=== PATIENT | male | born 1995 | race American Indian/Alaskan Native ===

== ENCOUNTER 2016-04-29 18:10 | Emergency (ER) | payer MEDICAID ==
[2016-04-29 18:11] VITALS: BMI 24.3
[2016-04-29 18:18] VITALS: BP 126/79; PULSE 62; RESP 16; TEMP 97.6; O2SAT 99
[2016-04-29] MEDS ORDERED: cefTRIAXone (Rocephin) 250 mg Inj IM ONE (18:39)
--- NOTE | 2016-04-29 18:43 | ED PDOC ---
HPI: Male Pain Time Seen by Provider: 04/29/16 18:17 Chief Complaint (Nursing): Male Genitourinary Chief Complaint (Provider): lesions on penis History Per: Patient History/Exam Limitations: no limitations Additional Complaint(s): 21yo M in ED for eval of lesions to penis x 1 weeks. states he was sexually active without protection x 1 week ago. doens' know partners status. pt admits to pain around lesion sit to penis without penile d/c, swelling to glans, swelling or pain to scrotum. no lesions around anus, no anal pain, no abd pain, no hematuira ,no dysuria, no fever no chills. Past Medical History Reviewed: Historical Data, Nursing Documentation, Vital Signs Vital Signs: Last Vital Signs Temp 97.6 F 04/29/16 18:13 Pulse 62 04/29/16 18:13 Resp 16 04/29/16 18:13 BP 126/79 04/29/16 18:13 Pulse Ox 99 04/29/16 18:13 - Medical History PMH: Denies: Depression - Family History Family History: States: No Known Family Hx - Home Medications Home Medications: Ambulatory Orders Medication Instructions Recorded valACYclovir [Valtrex] 1 gm PO BID #20 tab 04/29/16 - Allergies Allergies/Adverse Reactions: Allergies Allergy/AdvReac Type Severity Reaction Status Date / Time No Known Allergies Allergy Verified 04/29/16 18:13 Review of Systems ROS Statement: Except As Marked, All Systems Reviewed And Found Negative Genitourinary Male: Positive for: Rash, Penile Pain. Negative for: Hematuria, Penile Discharge, Scrotal Pain Physical Exam - Reviewed Nursing Documentation Reviewed: Yes Vital Signs Reviewed: Yes - Physical Exam Appears: Positive for: Well, Non-toxic, No Acute Distress Head Exam: Positive for: ATRAUMATIC, NORMAL INSPECTION, NORMOCEPHALIC Skin: Positive for: Normal Color, Warm, DRY Cardiovascular/Chest: Positive for: Regular Rate, Rhythm Respiratory: Positive for: CNT, Normal Breath Sounds Gastrointestinal/Abdominal: Positive for: Normal Exam, Bowel Sounds, Soft. Negative for: Tenderness Male Genital Exam: Positive for: no hernia, lesions (ulcerative lesions noted to glans of penis and shaft no active bleeding tenderness to lesions. ). Negative for: normal genitalia, bleeding, epididymal tenderness, scrotum tenderness (R), scrotum tenderness (L), testicular tenderness (R), testicular tenderness (L), urethral discharge Back: Positive for: Normal Inspection. 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 Pt will be tx prophylactically: Ceftrixone-250mgIM, azithromycin 1gm PO pt advised to abstain from sexual activity until results. educated on STDs. Disposition - Clinical Impression Clinical Impression: Lesion of penis - Patient ED Disposition Is Patient to be Admitted: No Counseled Patient/Family Regarding: Studies Performed, Diagnosis, Need For Followup, Rx Given - Disposition Disposition: Routine/Home Disposition Time: 18:50 Condition: STABLE Additional Instructions: you will receive a call for only positive STD results in about 3-5days. Prescriptions: valACYclovir [Valtrex] 1 gm PO BID #20 tab Instructions: Genital Herpes Simplex (ED), Sexually Transmitted Diseases (ED), Condom Use (ED), Safe Sex (ED)
[2016-04-29] MEDS ORDERED: Sterile Water 10 ML IV ONE (18:51)
[2016-04-29] MEDS ORDERED: cefTRIAXone (Rocephin) 250 mg Inj ONE (18:51)
== END 2016-04-29 19:11 | disposition home or self-care (01) ==
LOC: H.ER 18:10
DX: A60.00 Herpesviral infection of urogenital system, unspecified (principal); A64 Unspecified sexually transmitted disease

== ENCOUNTER 2016-07-14 19:13 | Emergency (ER) | payer MEDICAID ==
[2016-07-14 19:13] VITALS: BMI 24.3
[2016-07-14 19:21] VITALS: BP 152/85; PULSE 66; RESP 16; TEMP 97.8; O2SAT 99
--- NOTE | 2016-07-14 19:42 | ED PDOC ---
HPI: General Adult Time Seen by Provider: 07/14/16 19:26 Chief Complaint (Nursing): ENT Problem Chief Complaint (Provider): Test results Additional Complaint(s): 21 year old male with no PMH presents to ED requesting results of STD testing that was completed on 04/29/16. Patient denies any STD symptoms. He also states he has nasal congestion and thinks it may be related to seasonal allergies. He denies any chest pain, SOB or JIMENEZ. He denies any sore throat despite triage note stating otherwise. Past Medical History Reviewed: Historical Data, Nursing Documentation, Vital Signs Vital Signs: Last Vital Signs Temp 97.8 F 07/14/16 19:20 Pulse 66 07/14/16 19:20 Resp 16 07/14/16 19:20 BP 152/85 H 07/14/16 19:20 Pulse Ox 99 07/14/16 19:43 - Medical History PMH: No Chronic Diseases - Surgical History Surgical History: No Surg Hx - Family History Family History: States: No Known Family Hx - Living Arrangements Living Arrangements: With Family - Social History Current smoker - smoking cessation education provided: No Alcohol: None Drugs: Denies - Home Medications Home Medications: Ambulatory Orders Medication Instructions Recorded valACYclovir [Valtrex] 1 gm PO BID #20 tab 04/29/16 - Allergies Allergies/Adverse Reactions: Allergies Allergy/AdvReac Type Severity Reaction Status Date / Time No Known Allergies Allergy Verified 04/29/16 18:13 Review of Systems ROS Statement: Except As Marked, All Systems Reviewed And Found Negative Constitutional: Negative for: Fever ENT: Positive for: Nose Congestion Genitourinary Male: Negative for: Dysuria, Frequency, Incontinence, Hematuria, Penile Discharge, Rash, Penile Pain Physical Exam - Reviewed Nursing Documentation Reviewed: Yes Vital Signs Reviewed: Yes - Physical Exam Appears: Positive for: Well, Non-toxic, No Acute Distress Skin: Negative for: Rash Eye Exam: Positive for: Normal appearance ENT: Positive for: Nasal Congestion. Negative for: Pharyngeal Erythema, Tonsillar Swelling Cardiovascular/Chest: Positive for: Regular Rate, Rhythm Respiratory: Positive for: Normal Breath Sounds. Negative for: Respiratory Distress Neurologic/Psych: Positive for: Alert, Oriented - ECG O2 Sat by Pulse Oximetry: 99 Pulse Ox Interpretation: Normal Medical Decision Making Medical Decision Makin21 year old male with congestion Copy of labs from previous visit given to patient. Patient instructed to take claritin over the counter prn for congestion. He was referred to clinic for follow up. Disposition - Clinical Impression Clinical Impression: Allergic rhinitis - Patient ED Disposition Is Patient to be Admitted: No Counseled Patient/Family Regarding: Diagnosis, Need For Followup - Disposition Referrals: [facility] [Outside] Disposition: Routine/Home Disposition Time: 19:39 Condition: STABLE Additional Instructions: Take over the counter claritin as needed for congestion. Follow up with primary care doctor. Instructions: Allergic Rhinitis (ED)
== END 2016-07-14 20:00 | disposition home or self-care (01) ==
LOC: H.ER 19:13
DX: J30.9 Allergic rhinitis, unspecified (principal)